=== PATIENT | male | born 1985 | race Caucasian/White ===

== ENCOUNTER 2019-04-16 20:26 | Emergency (ER) | payer SELFPAY ==
[~2019-04-16] VITALS: Ht 186.7 cm; Wt 97.5 kg
--- NOTE | 2019-04-16 20:47 | NUR ---
BIB SELF C/O R THIGH ABSCESS X 1 1/2 WEEKS. PT ADMITS TO INJECTING HEROIN 2 DAYS AGO, TO ER BED 2, VITALS TABLE, BEIGN SEEN BY
[2019-04-16] MEDS ORDERED: ACETAMINOPHEN ES 500 MG TABLET ONE (20:54)
[2019-04-16] MEDS ORDERED: LIDOCAINE 1%-EPI 1:100,000 20 ML VIAL ONE (20:54)
[2019-04-16] MEDS ORDERED: LIDOCAINE 1%-EPI 1:100,000 20 ML VIAL TP ONE (21:00)
[2019-04-16] MEDS ORDERED: ACETAMINOPHEN 325 MG TABLET PO ONE (21:00)
--- NOTE | 2019-04-16 21:06 | NUR ---
PT AT BEDSIDE PREFORMING R THIGH I&D
[2019-04-16] MEDS ORDERED: CEPHALEXIN MONOHYDRATE 500 MG CAPSULE PO ONE ×2 (21:15→21:30)
[2019-04-16] MEDS ORDERED: SULFAMETH/TRIMETH 800/160 MG 1 UDTAB TABLET ONE (21:15)
[2019-04-16 21:21] VITALS: BP 129/81
--- NOTE | 2019-04-16 21:28 | NUR ---
Patient discharged to home in stable condition. Written and verbal after care instructions given. Patient verbalizes understanding of instruction.
[2019-04-16] MEDS ORDERED: SULFAMETH/TRIMETH 800/160 MG 1 UDTAB TABLET PO ONE (21:30)
== END 2019-04-16 21:28 | disposition home or self-care (01) ==
LOC: ER 20:31
DX: L02.415 Cutaneous abscess of right lower limb (principal); J45.909 Unspecified asthma, uncomplicated; F20.9 Schizophrenia, unspecified; F19.10 Other psychoactive substance abuse, uncomplicated
CPT/HCPCS: 10060; 99284; A6407; J3490